=== PATIENT | male | born 1990 | race Caucasian/White ===

== ENCOUNTER 2022-08-10 14:30 | Outpatient (RCR) | payer BC, SELFPAY ==
--- NOTE | 2022-03-18 16:09 | HP.PTEVAL ---
Patient's Visit Information DURGA REYES is a 31 year old M referred to Physical Therapy by OSCAR ANGEL with a diagnosis of LUMBAGO WITH SCITAICA. Date of Evaluation: 03/18/22 Physical Therapist: Hi Ryan, PT, Cert MDT, OCS - Visit Plan Frequency: 2x /Week Duration: 4 Weeks Plan: PT INTERVETIONS FOCUS ON MECKENZIE EXTENSION ,MANUAL THERAPY MOBILIZATION ,ANR STRETCHING POSTURE TRAINING AND MODIFICATION MODALTIES AND GRADED DLS EX''S - Subjective This 31 y/o male presents to physical therapy with lumbar radiculopathy left leg . Patient has had symptoms ~ 3 years ,intermittent but past ~ 7-8 months progressively worse. Patient symptoms stated [employer] lifting stocking noticed symptoms in leg . Eventually ~ 3weeks ago recommended PT and prescribed muscle relaxers. No diagnostics . Patient pain located left LS to lateral leg to foot. Aggerating factors bending lifting and sitting ,initially walking. Alleviating rest, moving walking and standing. Denies paresthesia/tingling-. Bowel /bladder -. Cough/sneezing-. Patient is able to sleep. Patient sees chiropractor . Patient condition affects QOL ,job demands and housework tasks. SOCIAL: single. VOCATION: [employer] - Pain Left Back Pain Intensity (Out of 10): 7 Pain Intensity Range: 10 Left Lower Extremity Pain Intensity (Out of 10): 4 Pain Intensity Range: 5, 10 - Objective POSTURE: mild forward posture, reduce lordosis ,flat spine. NEURO: denies paresthesia/tingling ,reflexes L3-4,L4-5,L5-S1 1/3. + ANR LLE. PALAPTION: unremarkable. SYMETTRIES: align. GAIT: ambulates with slow jim guarded gait flat spine mild forward posture. MMT: ANR affects left quads strength 3+/5 ,hip flexion /abd 4-/5 ,hamstrings 4/5 ankle 4/5,GTE 4-/5. LUMBAR ROM: flexion mod /severe limited ,extension mod severe loss ,side glides mod loss. FLEXABILTY: hamstrings mod right left severe limited by ANR - Special Tests L/S Slump test left side: Positive L/S Slump test right side: Negative L/S Left Straight Leg Raise: Positive L/S Right Straight Leg Raise: Negative Lumbar Standing: Flexion - Mechanical Response: No effect Lumbar Standing: Flexion - Symptoms During Testing: Increases Lumbar Standing: Flexion - Symptoms After Testing: Worse Comments:: leg Lumbar Standing: Extension - Mechanical Response: No effect Lumbar Standing: Extension - Symptoms During Testing: Decreases Lumbar Standing: Extension - Symptoms After Testing: No better Comments:: lumbat Lumbar Standing: Right Side Glides - Mechanical Response: No effect Lumbar Standing: Right Side [place] - Symptoms During Testing: No effect Lumbar Standing: Right Side [place] - Symptoms After Testing: No effect Lumbar Standing: Left Side [place] - Mechanical Response: No effect Lumbar Standing: Left Side [place] - Symptoms During Testing: No effect Lumbar Standing: Left Side [place] - Symptoms After Testing: No effect Lumbar Lying: Flexion - Mechanical Response: No effect Lumbar Lying: Flexion - Symptoms During Testing: Increases Lumbar Lying: Flexion - Symptoms After Testing: Worse Comments:: leg/back Lumbar Lying: Extension - Mechanical Response: No effect Lumbar Lying: Extension - Symptoms During Testing: Decreases Lumbar Lying: Extension - Symptoms After Testing: Better Comments:: leg - Balance/Special Test Scores Oswestry Low Back Score: 25 - Goals Goal 1:: Patient to be I with HEP ASIM Goal Time Frame: 4-6 Weeks Goal 2:: Patient improve posture/body mechanics to improve function Goal Time Frame: 4-6 Weeks Goal 3:: Patient to improve lumbar function function of recovery to lift and put on shes Goal Time Frame: 4-6 Weeks Goal 4:: Patient to demonstrate 60 % improvement with decrease pain and improved function Goal Time Frame: 4-6 Weeks Goal 5:: Patient to improve back oswestry score by 5 points to improve QOL and function Goal Time Frame: 4-6 Weeks Goal 6:: Patient to resolve ANR to able able to bend with less pain for function Goal Time Frame: 4-6 Weeks - Rehabilitation Potential Physical Therapy Diagnosis: This patient has a lumbar derangement below knee and long with ANR + pain with positioning ,motion testing , poor lumbar ROM worse with bending better with extension thus benefit from skilled PT Rehabilitation Potential: Good - Anticipated Interventions Patient/Client Instruction: Educate patient on: Condition, Plan of Care For the Purpose of:: To decrease pain, To increase ROM, To improve muscle performance and motor function, To improve ability to perform ADL's, To increase tolerance to activity/condition/position, To improve ability of physical actions for home/community/work/leisure, To improve health of tissue, To decrease soft tissue restriction, To increase flexibility/ROM, To improve self management, To prevent re-injury Therapeutic Exercise to Include: Strength training, Endurance training, Balance training, Body mechanics, Postural training, Dynamic Lumbar Stabilization, Tyra Exercises For the Purpose of:: To decrease pain, To increase ROM, To improve muscle performance and motor function, To improve ability to perform ADL's, To increase tolerance to activity/condition/position, To improve ability of physical actions for home/community/work/leisure, To improve gait and locomotor functions, To decrease soft tissue restriction, To increase flexibility/ROM, To reduce risk of recurrence, To prevent re-injury Manual Therapy Techniques to Include: Mobilization Comment: LUMBAR EXTENSIOIN For the Purpose of:: To decrease pain, To increase ROM, To improve health of tissue, To decrease soft tissue restriction TENS: Yes IF ES: Yes Cryotherapy (ice pack, ice massage): Yes Thermo therapy (hot pack): Yes Ultrasound (thermal/non thermal): Yes For the Purpose of:: To decrease pain, To decrease swelling/inflammation, To improve nutrient delivery to tissue, To increase oxygenation perfusion, To improve health of tissue, To decrease soft tissue restriction Thank you for the opportunity to evaluate your patient. For Medicare and Medicare HMO plans, please review the plan of care and approve it. It will need to be FAXED BACK to us at [phone] for Medicare purposes. For Medicare only, by signing this I certify the plan of care. Please let me know if there are questions or concerns regarding this plan of care. Physician Signature: Date:
--- NOTE | 2022-07-13 14:34 | HP.PTREVAL ---
OSCAR ANGEL, It has been my pleasure to treat DURGA REYES over the last 15 visits for LUMBAGO WITH SCITAICA. Please see the progress note below for an update on the physical therapy plan of care! Subjective: Pain has been intermittent. left LS. no leg symptoms except numbness. Patient had Flu was in bed over holidays Objective/Function: Patient has shown regression with ROM and forward posture pain is better in leg only has left LS except paresthesia in foot. POSTURE : forward posture. GAIT: forward posture reciprocal pattern , guarded gait. MMT: quads left + ANR affects knee extension 4-/5 otherwise hamstrings/hip flexion ankle 4/5. LUMBAR ROM: flexion min loss ,extension ,mod severe loss, side glides min loss. + ANR left. FLEXABLITY: mod/sever left mod left Plan Plan: REQUESTING 8 MORE VISITS. PT INTERVETIONS FOCUS ON MECKENZIE EXTENSION ,MANUAL THERAPY MOBILIZATION ,ANR STRETCHING POSTURE TRAINING AND MODIFICATION MODALTIES AND GRADED DLS EX''S Balance/Gait/Functional tests - Balance/Special Test Scores Oswestry Low Back Score: 9 Goals Goal 1:: Patient to be I with HEP ASIM Goal Time Frame: 4-6 Weeks Goal Progress: Progressing Goal 2:: Patient improve posture/body mechanics to improve function Goal Time Frame: 4-6 Weeks Goal Progress: Progressing Goal 3:: Patient to improve lumbar function function of recovery to lift and put on shes Goal Time Frame: 4-6 Weeks Goal Progress: Progressing Goal 4:: Patient to demonstrate 75 % improvement with decrease pain and improved function( new gaol) Goal Time Frame: 4-6 Weeks Goal 5:: Patient to improve back oswestry score by 5 points to improve QOL and function( new goals) Goal Time Frame: 4-6 Weeks Goal 6:: Patient to resolve ANR to able able to bend with less pain for function Goal Time Frame: 4-6 Weeks Goal Progress: Progressing Anticipated Interventions Patient/Client Instruction: Educate patient on: Condition, Plan of Care For the Purpose of:: To decrease pain, To increase ROM, To improve muscle performance and motor function, To improve ability to perform ADL's, To increase tolerance to activity/condition/position, To improve ability of physical actions for home/community/work/leisure, To improve health of tissue, To decrease soft tissue restriction, To increase flexibility/ROM, To improve self management, To prevent re-injury Therapeutic Exercise to Include: Strength training, Endurance training, Balance training, Body mechanics, Postural training, Dynamic Lumbar Stabilization, Tyra Exercises For the Purpose of:: To decrease pain, To increase ROM, To improve muscle performance and motor function, To improve ability to perform ADL's, To increase tolerance to activity/condition/position, To improve ability of physical actions for home/community/work/leisure, To improve gait and locomotor functions, To decrease soft tissue restriction, To increase flexibility/ROM, To reduce risk of recurrence, To prevent re-injury Manual Therapy Techniques to Include: Mobilization Comment: LUMBAR EXTENSIOIN For the Purpose of:: To decrease pain, To increase ROM, To improve health of tissue, To decrease soft tissue restriction TENS: Yes IF ES: Yes Cryotherapy (ice pack, ice massage): Yes Thermo therapy (hot pack): Yes Ultrasound (thermal/non thermal): Yes For the Purpose of:: To decrease pain, To decrease swelling/inflammation, To improve nutrient delivery to tissue, To increase oxygenation perfusion, To improve health of tissue, To decrease soft tissue restriction Please do not hesitate to contact me at [phone] by phone or if you have questions or concerns regarding this new plan of care! Sincerely, Hi Ryan, PT, Cert MDT, OCS
== END 2022-08-10 19:00 | disposition home or self-care (01) ==
LOC: PT 14:30
DX: M54.42 Lumbago with sciatica, left side (principal)
CPT/HCPCS: 97110; 97162